=== PATIENT | male | born 1965 | race Caucasian/White ===

== ENCOUNTER 2016-09-16 08:28 | Emergency (ER) | payer OTHER, BC ==
[~2016-09-16] VITALS: Ht 188 cm; Wt 102.5 kg
[2016-09-16] MEDS ORDERED: TYLENOL WITH C1 EACH PO (14:04)
[2016-09-16 14:14] VITALS: BP 130/80
== END 2016-09-16 14:15 | disposition home or self-care (01) ==
LOC: EME → EDBD 08:28 → EME 14:15
DX: S16.1XXA Strain of muscle, fascia and tendon at neck level, initial encounter (principal); S09.90XA Unspecified injury of head, initial encounter; V83.5XXA Driver of special industrial vehicle injured in nontraffic accident, initial encounter
CPT/HCPCS: 70450; 72040; 72125; 72141; 99281; 99284